=== PATIENT | female | born 1990 | race African-American/Black ===

== ENCOUNTER 2016-10-17 11:46 | Emergency (ER) | payer OTHER ==
[~2016-10-17] VITALS: Ht 152.4 cm; Wt 57.0 kg
[2016-10-17 12:59] VITALS: BP 94/67
[2016-10-17 13:28] LABS: BASOPHILS % 0.7 % (0.0-2.0); EOSINOPHILS % 1.4 % (0.0-5.0); HEMATOCRIT. 35.5 % (36.0-48.0); HEMOGLOBIN. 11.8 g/dL (12.0-16.0); LYMPHOCYTES % 38.4 % (20.0-50.0); MEAN CORPUSCULAR HEMOGLOBIN 30.5 pg (28.0-32.0); MEAN CORPUSCULAR VOLUME 91.4 fL (81.0-99.0); MEAN PLATELET VOLUME 9.3 fl (7.4-10.4); MONOCYTES % 5.1 % (2.0-8.0); NEUTROPHILS % 54.4 % (40.0-76.0); PLATELET 229 x1000/uL (130-400); RED BLOOD CELL COUNT 3.89 mill/uL (4.2-5.4); RED CELL DISTRIBUTION WIDTH 12.6 % (11.6-14.6)
[2016-10-17 13:31] LABS: CHLORIDE 108 mEq/L (98-107)
[2016-10-17 13:32] LABS: PROTHROMBIN TIME 10.3 sec
[2016-10-17 13:38] LABS: CARBON DIOXIDE 27 mEq/L (21-32)
[2016-10-17 13:44] LABS: B-HCG QUANTITATIVE < 1 mIU/mL (<3)
== END 2016-10-17 14:53 | disposition left against medical advice (07) ==
LOC: ER 13:20
DX: O20.0 Threatened abortion (principal); Z3A.00 Weeks of gestation of pregnancy not specified
CPT/HCPCS: 36415; 76830; 76856; 80053; 84702; 85025; 85610; 86850; 86900; 99285

== ENCOUNTER 2020-09-11 20:31 | Emergency (ER) | payer MEDICAID, OTHER ==
[~2020-09-11] VITALS: Ht 152.4 cm; Wt 75.1 kg
[2020-09-11 22:47] LABS: CLARITY URINE CLOUDY (CLEAR); COLOR URINE DARK YELLOW (YELLOW); KETONES URINE TRACE (NEGATIVE); LEUKOCYTE ESTERASE URINE 2+ (NEGATIVE); NITRITE URINE NEGATIVE (NEGATIVE); OCCULT BLOOD URINE 1+ (NEGATIVE); PH URINE 6.5 (4.5-8.0); PROTEIN URINE TRACE (NEGATIVE); SPECIFIC GRAVITY URINE 1.023 (1.005-1.030)
[2020-09-12] MEDS ORDERED: ACETAMINOPHEN 325MG TABLET PO ONE (00:30)
[2020-09-12] MEDS ORDERED: DOXYCYCLINE HYCLATE 100MG CAPSULE PO ONE (00:30)
[2020-09-12] MEDS ORDERED: LIDOCAINE HCL 1% 20ML VIAL (Pyxis) INJ INFIL ONE (00:30)
[2020-09-12] MEDS ORDERED: METRONIDAZOLE 500MG TABLET PO ONE (00:30)
[2020-09-12] MEDS ORDERED: CEFTRIAXONE SODIUM 500 MG/VIAL IM ONE (00:30)
[2020-09-12] MEDS ORDERED: DOXY100T2 MT (01:23)
[2020-09-12] MEDS ORDERED: ACET-2708 MT (01:23)
[2020-09-12 01:30] VITALS: BP 121/69
[2020-09-14 08:12] LABS: NEISSERIA GONORRHOEAE NAA Negative (Negative)
== END 2020-09-12 01:31 | disposition home or self-care (01) ==
LOC: ER 20:31
DX: N30.00 Acute cystitis without hematuria (principal)
CPT/HCPCS: 81003; 81025; 87086; 87210; 87491; 87591; 96372; 99284; J0696; J3490; Z7610

== ENCOUNTER 2021-10-03 12:51 | Emergency (ER) | payer MEDICAID, OTHER ==
[~2021-10-03] VITALS: Ht 157.5 cm; Wt 80.0 kg
[~2021-10-03 12:51] MED LIST: ACET-2708 MT; DOXY100T2 MT
[2021-10-03] MEDS ORDERED: IBUPROFEN 600MG TABLET PO STA (13:35)
[2021-10-03] MEDS ORDERED: AMOX-494 PO (16:36)
[2021-10-03] MEDS ORDERED: NAPR-681 PO (16:36)
[2021-10-03] MEDS ORDERED: PENICILLIN G BENZATHINE 1,200,000 UNITS/2ML SYR IM STA (17:19)
[2021-10-03] MEDS ORDERED: PENICILLIN G BENZATHINE 1,200,000 UNITS/2ML SYR IM NR (17:45)
[2021-10-03 17:46] VITALS: BP 129/59
== END 2021-10-03 17:46 | disposition home or self-care (01) ==
LOC: ER 12:57
DX: J02.9 Acute pharyngitis, unspecified (principal)
CPT/HCPCS: 96372; 99283; J0561